=== PATIENT | male | born 1970 | race African-American/Black ===

== ENCOUNTER 2020-06-22 09:38 | Observation (INO) ==
[2020-06-22] MEDS ORDERED: ANCEF 1 GRAM IV PREMIX* 2 G/100 ML BAG IV ONE (09:47)
[2020-06-22] MEDS ORDERED: NS 1000 ML 1,000 ML ONE (09:47)
[2020-06-22 10:17] VITALS: BMI 28.4
[2020-06-22] MEDS ORDERED: NAROPIN 0.75% EPI ONE (10:48)
[2020-06-22] MEDS ORDERED: FENTANYL INJ 100 mcg ONE ×4 (10:48→15:39)
[2020-06-22] MEDS ORDERED: SUPRANE ONE (10:49)
[2020-06-22] MEDS ORDERED: MARCAINE 0.25% INJ ONE (11:31)
[2020-06-22] MEDS ORDERED: XYLOCAINE 1 % (PLAIN) ONE (11:37)
[2020-06-22] MEDS ORDERED: LR 1000 ML IV 1,000 ML IV ONE (12:59)
[2020-06-22] MEDS ORDERED: TORADOL 30 MG VIAL ONE (13:36)
[2020-06-22] MEDS ORDERED: VERSED ONE (13:36)
[2020-06-22] MEDS ORDERED: XYLOCAINE 2 % (PLAIN) ONE (13:36)
[2020-06-22] MEDS ORDERED: REGLAN INJ 10 MG VIAL ONE (13:36)
[2020-06-22] MEDS ORDERED: DECADRON INJ ONE (13:36)
[2020-06-22] MEDS ORDERED: ZOFRAN INJ 4 MG VIAL ONE ×2 (13:36→17:08)
[2020-06-22] MEDS ORDERED: QUELICIN (OR ANECTINE) ONE (13:36)
[2020-06-22] MEDS ORDERED: ULTANE GAS IN ONE ×2 (13:36→14:06)
[2020-06-22] MEDS ORDERED: DIPRIVAN VIAL ONE (13:36)
[2020-06-22] MEDS ORDERED: DILAUDID INJ ONE (15:37)
[2020-06-22] MEDS ORDERED: BENADRYL INJ 50 MG VIAL IVP PRN (16:42)
[2020-06-22] MEDS ORDERED: ZOFRAN INJ 4 MG VIAL IVP PRN (16:42)
[2020-06-22] MEDS ORDERED: PHENERGAN INJ 25 MG IM PRN (16:42)
[2020-06-22] MEDS ORDERED: REGLAN INJ 10 MG VIAL IVP PRN (16:42)
[2020-06-22] MEDS ORDERED: DILAUDID INJ IVP PRN (16:42)
[2020-06-22] MEDS ORDERED: LOVENOX INJ 40 MG SYR SC ONE (18:10)
[2020-06-22] MEDS: LOVENOX INJ 40 MG SYR SC SCH (18:12)
[2020-06-22] MEDS: NS 1000 ML 1,000 ML IV SCH ×2 (23:43)
[2020-06-22] MEDS: DILAUDID INJ IVP PRN (23:43)
[2020-06-23] MEDS: DILAUDID INJ IVP PRN ×2 (04:00→07:50)
[2020-06-23] MEDS ORDERED: TORADOL 30 MG VIAL IVP ONE (08:44)
[2020-06-23] MEDS ORDERED: ROXICODONE TAB 5 MG PO PRN (08:44)
--- NOTE | 2020-06-23 08:54 | MD.NOTE ---
Provider Note Note Note: S: patient seen resting comfortably. block off at 11pm last night. pain moderate 8/10. pain meds doing ok. would like to go home. dressing CDI. no chest pain or over night events. O: dressing CDI. motor intact to toes. no acute findings. A: POD #1 from TAR right ankle. P: plan for D/C to home. will stop IV meds and will start oxycodone 10mg. to be NWB with assistive device and will need to use walker due to total shoulder replacement. ok to start back on eliquis.
--- NOTE | 2020-06-23 09:00 | MD.NOTE ---
Provider Note Note Note: S: patient seen doing well this AM .NAD. strikethrough on bandage today. moderate to severe pain at 10/10 this am. pain meds help. pain in the heel and ankle. motor intact to toes. block off at around 2am this am. O: motor and sensory intact to toes. incision without active bleeding with dressing change. A: POD#1 from TAR right ankle. P: up with PT this am. NWB on right LE with crutches. has these at home. dressing changed this am. sterile dressing applied. will keep on and follow up with me outpatient. will give toradol this am and will stop dilaudid and start on oral oxycodone. patient wants to go home so will give dilaudid oral tabs for D/C with oxycodone.
[2020-06-23] MEDS: LOVENOX INJ 40 MG SYR SC SCH (09:16)
[2020-06-23] MEDS ORDERED: DILAUDID INJ IVP STA (09:49)
[2020-06-23] MEDS ORDERED: DILAUDID INJ IVP PRN (10:27)
[2020-06-23 12:17] VITALS: BP 139/66
== END 2020-06-23 15:05 | disposition home or self-care (01) ==
LOC: SURG1 09:38 → MED/SURG 09:38 → EDUNIT# 11:30
PROVIDERS: ADMIT Obstetrics & Gynecology Obstetrics; ATTEND Obstetrics & Gynecology Obstetrics
DX: G89.18 Other acute postprocedural pain; M19.071 Primary osteoarthritis, right ankle and foot; Z96.661 Presence of right artificial ankle joint; T84.098A Other mechanical complication of other internal joint prosthesis, initial encounter; R26.89 Other abnormalities of gait and mobility